=== PATIENT | male | born 1980 | race Hispanic/Latino ===

== ENCOUNTER 2017-02-19 16:10 | Emergency (ER) | payer OTHER ==
[~2017-02-19] VITALS: Ht 170.2 cm; Wt 117.9 kg
[2017-02-19] MEDS ORDERED: FAMOTIDINE 20MG/2ML IV (PEPCID) IV STA (16:41)
[2017-02-19] MEDS ORDERED: NS IV 1000 ML 1,000 ML IV ONE (16:41)
[2017-02-19] MEDS ORDERED: ANTACID SUSP 30 ML UDC (MYLANTA) PO ONE (16:45)
[2017-02-19] MEDS ORDERED: LIDOCAINE 2% VISCOUS 15 ML UDC PO ONE (16:45)
--- NOTE | 2017-02-19 16:56 | ED Abdominal Pain ---
General Chief Complaint: Abdominal/GI Problems Stated Complaint: ABD PAIN Nursing Triage Note: PT TO ED 3 W/ C/O ABD PAIN FROM UMBILICUS TO EPIGASTRIC REGION ONSET X1 YR, WORSE OVER THE PAST FEW WEEKS. REPORTS IT FEELS LIKE HIS ABD SWELLS WHEN HE EATS. NO OTHER C/O VOICED Sepsis Screen: No Definite Risk Source of Information: Patient, Other (insurance claims representative) Exam Limitations: Language Barrier History of Present Illness Time Seen By Provider: 16:36 Initial Comments 36-year-old male patient presents to the emergency Department with reports of pain radiating from the umbilicus to the epigastric region for one year. States it has been worse over the last 4-5 weeks. Does complain of abdominal bloating and reflux symptoms. Symptoms worse with spicy foods and fatty foods. States at times he wakes up with a bad taste in his mouth and nausea. Timing/Duration: Getting Worse, Other (1 yr onset. worse over the last 4-5 wks. ) Severity/Quality: Aching, Burning Location: Periumbilical Radiation: Epigastric Activities at Onset: None Modifying Factors: Worsens With Eating Allergies and Home Medications Allergies Coded Allergies: No Known Drug Allergies (Unverified , 02/19/17) Home Medications Famotidine 20 Mg Tablet, 20 MG PO BID, #60 Ref 0 Prescribed by: FRAN EMERSON on 02/19/171807 Sucralfate 1 Gm Tablet, 1 GM PO ACHS, #56 Ref 0 1 g slurry po qAC and HS x2 wks. Prescribed by: FRAN EMERSON on 02/19/171807 Review of Systems Constitutional: No chills, No fever, No malaise Respiratory: No Symptoms Reported Cardiovascular: No Symptoms Reported Gastrointestinal: See HPI, Abdomen Distended, Abdominal Pain, Denies Blood Streaked Stools, Denies Constipated, Denies Diarrhea, Denies Difficulty Swallowing, Nausea, Poor Appetite, Denies Poor Fluid Intake, Denies Rectal Bleeding, Denies Vomiting Genitourinary: Denies Burning, Denies Frequency, Denies Flank Pain, Denies Hematuria, Denies Pain Musculoskeletal: no symptoms reported Skin: no symptoms reported Psychiatric/Neurological: No Symptoms Reported All Other Systems Reviewed Negative Unless Noted: Yes (Negative excepted noted.) Past Prehtnr-Brivbi-Qhfgqd Hx Patient Social History Alcohol Use: Denies Use Recreational Drug Use: No Smoking Status: Never a Smoker 2nd Hand Smoke Exposure: No Recent Foreign Travel: No Contact w/Someone Who Travel: No Recent Infectious Disease Expo: No Recent Hopitalizations: No Surgeries HX Surgeries: Yes (KIDNEY STONE REMOVAL) Respiratory Hx Respiratory Disorders: No Cardiovascular Hx Cardiac Disorders: No Neurological Hx Neurological Disorders: No Reproductive System Hx Reproductive Disorders: No Genitourinary Hx Genitourinary Disorders: No Gastrointestinal Hx Gastrointestinal Disorders: No Musculoskeletal Hx Musculoskeletal Disorders: No Endocrine Hx Endocrine Disorders: No HEENT HX ENT Disorders: No Cancer Hx Cancer: No Psychosocial Hx Psychiatric Problems: No Blood Transfusions Hx Blood Disorders: No Reviewed Nursing Assessment Reviewed/Agree w Nursing PMH: Yes Family Medical History Significant Family History: No Pertinent Family Hx Physical Exam Vital Signs Capillary Refill : Less Than 3 Seconds General Appearance: WD/WN, no apparent distress HEENT: PERRL/EOMI, pharynx normal Neck: supple, normal inspection Respiratory: lungs clear, normal breath sounds, no respiratory distress Cardiovascular: regular rate, rhythm, no murmur Gastrointestinal: normal bowel sounds, soft, no organomegaly, No distended, guarding (epigastric), No rebound, tenderness (epigastric), hernia (reducible umbilical hernia.) Extremities: no pedal edema, normal capillary refill Back: normal inspection, no CVA tenderness Neurologic/Psychiatric: alert, normal mood/affect, oriented x 3 Skin: normal color, warm/dry Progress/Results/Core Measures Results/Orders Lab Results Laboratory Tests Test 02/19/17 16:51 Range/Units White Blood Count 8.7 4.3-11.0 10^3/uL Red Blood Count 5.15 4.35-5.85 10^6/uL Hemoglobin 14.5 13.3-17.7 G/DL Hematocrit 42 40-54 % Mean Corpuscular Volume 82 80-99 FL Mean Corpuscular Hemoglobin 28 25-34 PG Mean Corpuscular Hemoglobin Concent 34 32-36 G/DL Red Cell Distribution Width 13.1 10.0-14.5 % Platelet Count 244 130-400 10^3/uL Mean Platelet Volume 10.8 H 7.4-10.4 FL Neutrophils (%) (Auto) 61 42-75 % Lymphocytes (%) (Auto) 27 12-44 % Monocytes (%) (Auto) 9 0-12 % Eosinophils (%) (Auto) 3 0-10 % Basophils (%) (Auto) 0 0-10 % Neutrophils # (Auto) 5.3 1.8-7.8 X 10^3 Lymphocytes # (Auto) 2.4 1.0-4.0 X 10^3 Monocytes # (Auto) 0.7 0.0-1.0 X 10^3 Eosinophils # (Auto) 0.3 0.0-0.3 10^3/uL Basophils # (Auto) 0.0 0.0-0.1 10^3/uL Sodium Level 140 135-145 MMOL/L Potassium Level 3.7 3.6-5.0 MMOL/L Chloride Level 106 98-107 MMOL/L Carbon Dioxide Level 24 21-32 MMOL/L Anion Gap 10 5-14 MMOL/L Blood Urea Nitrogen 17 7-18 MG/DL Creatinine 1.00 0.60-1.30 MG/DL Estimat Glomerular Filtration Rate > 60 BUN/Creatinine Ratio 17 Glucose Level 185 H 70-105 MG/DL Calcium Level 8.9 8.5-10.1 MG/DL Total Bilirubin 0.5 0.1-1.0 MG/DL Aspartate Amino Transf (AST/SGOT) 18 5-34 U/L Alanine Aminotransferase (ALT/SGPT) 39 0-55 U/L Alkaline Phosphatase 73 40-136 U/L Total Protein 6.8 6.4-8.2 G/DL Albumin 4.0 3.2-4.5 G/DL Lipase 38 8-78 U/L My Jada Elias - FRAN EMERSON Cbc With Automated Diff (02/19/17 16:41) Comprehensive Metabolic Panel (02/19/17 16:41) Lipase (02/19/17 16:41) Saline Lock/Iv-Start (02/19/17 16:41) Ns Iv 1000 Ml (Sodium Chloride 0.9%) (02/19/17 16:41) Lidocaine 2% Viscous 15 Ml (Xylocaine Vi (02/19/17 16:45) Antacid Suspension (Mylanta Suspension (02/19/17 16:45) Famotidine Injection (Pepcid Injection) (02/19/17 16:41) 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 Reports improvement in symptoms with medications given in the emergency department. Proceed with discharge to home. Patient instructed to follow-up with his primary care physician for recheck and possible need for referral for upper endoscopy. Return precautions were discussed with the patient. Patient voices understanding and agrees with the treatment plan. Impression Impression: Primary Impression: Gastritis, bile acid reflux Additional Impressions: Umbilical hernia Qualified Codes: K42.9 - Umbilical hernia without obstruction or gangrene Umbilical hernia without obstruction or gangrene Disposition: HOME, SELF-CARE Condition: Improved Departure-Patient Inst. Decision time for Depature: 18:05 [facility] Primary Care Physician Patient Instructions: Gastritis (DC), Ulcer and Gastritis Diet Add. Discharge Instructions: All discharge instructions reviewed with patient and/or family. Voiced understanding. Medications as instructed. Tylenol zdmi-hci-cvgvqgx as directed for pain. No spicy foods, fatty foods, carbonated beverages, caffeinated beverages, alcohol, smoking, secondhand smoke, ibuprofen, or Aleve. No aspirin. Do not eat within 2 hours of lying down. Drink plenty of fluids. Follow-up with your primary care physician for recheck if needed. Return to the emergency department for worsened pain, vomiting blood, black stools, rectal bleeding, inability to urinate, or any other concerns. Scripts Sucralfate (Carafate) 1 Gm Tablet 1 GM PO ACHS, #56 TAB 0 Refills 1 g slurry po qAC and HS x2 wks. Prov: FRAN EMERSON 02/19/17 Famotidine (Pepcid) 20 Mg Tablet 20 MG PO BID, #60 TAB 0 Refills Prov: FRAN EMERSON 02/19/17 Work/School Note: Work Release Form Date Seen in the Emergency Department: Feb 19, 2017 Return to Work: Feb 20, 2017 Restrictions: No Restrictions FRAN EMERSON Feb 19, 2017 16:56
[2017-02-19 17:07] VITALS: BP 135/83
[2017-02-19 17:10] LABS: BASOPHILS % (AUTO) 0 % (0-10); EOSINOPHILS # (AUTO) 0.3 10^3/uL (0.0-0.3); EOSINOPHILS % (AUTO) 3 % (0-10); LYMPHOCYTES # (AUTO) 2.4 X 10^3 (1.0-4.0); LYMPHOCYTES % (AUTO) 27 % (12-44); MEAN CORPUSCULAR HEMOGLOBIN 28 PG (25-34); MEAN CORPUSCULAR HGB CONC 34 G/DL (32-36); MEAN CORPUSCULAR VOLUME 82 FL (80-99); MEAN PLATELET VOLUME 10.8 FL (7.4-10.4); MONOCYTES # (AUTO) 0.7 X 10^3 (0.0-1.0); MONOCYTES % (AUTO) 9 % (0-12); NEUTROPHILS # (AUTO) 5.3 X 10^3 (1.8-7.8); NEUTROPHILS % (AUTO) 61 % (42-75); PLATELET COUNT 244 10^3/uL (130-400); RED BLOOD COUNT 5.15 10^6/uL (4.35-5.85); RED CELL DISTRIBUTION WIDTH 13.1 % (10.0-14.5); WHITE BLOOD COUNT 8.7 10^3/uL (4.3-11.0)
[2017-02-19 17:27] LABS: ALANINE AMINOTRANSFERASE 39 U/L (0-55); ANION GAP 10 MMOL/L (5-14); ASPARTATE AMINO TRANSFERASE 18 U/L (5-34); BILIRUBIN,TOTAL 0.5 MG/DL (0.1-1.0); BLOOD UREA NITROGEN 17 MG/DL (7-18); BUN/CREATININE RATIO 17; CALCIUM 8.9 MG/DL (8.5-10.1); CARBON DIOXIDE 24 MMOL/L (21-32); CHLORIDE 106 MMOL/L (98-107); GFR ESTIMATED > 60; GLUCOSE 185 MG/DL (70-105); LIPASE 38 U/L (8-78); POTASSIUM 3.7 MMOL/L (3.6-5.0); SODIUM 140 MMOL/L (135-145); TOTAL PROTEIN 6.8 G/DL (6.4-8.2)
[2017-02-19] MEDS ORDERED: FAMO-119 PO (18:08)
[2017-02-19] MEDS ORDERED: SUCR1TAB36 PO (18:08)
== END 2017-02-19 17:07 | disposition home or self-care (01) ==
LOC: EDUNIT# 16:10 → ER 16:13
DX: K29.70 Gastritis, unspecified, without bleeding (principal); K21.9 Gastro-esophageal reflux disease without esophagitis; K42.9 Umbilical hernia without obstruction or gangrene
CPT/HCPCS: 36415; 80053; 83690; 85025; 96361; 96374

== ENCOUNTER 2017-04-15 15:26 | Emergency (ER) | payer OTHER ==
[~2017-04-15] VITALS: Ht 170.2 cm; Wt 117.9 kg
[~2017-04-15 15:26] MED LIST: FAMO-119 PO; SUCR1TAB36 PO
[2017-04-15] MEDS ORDERED: DICL50TA6 PO (16:00)
--- NOTE | 2017-04-15 16:01 | ED Back Pain ---
General Chief Complaint: Back Problems Stated Complaint: R SIDE PAIN Nursing Triage Note: PT C/O R LOWER BACK PAIN RADIATING DOWN HIS R LEG SINCE . HE DENIES ANY INJURY. Nursing Sepsis Screen: No Definite Risk Source of Information: Patient Exam Limitations: No Limitations History of Present Illness Time Seen by Provider: 15:57 Initial Comments Patient complains of right lower back pain radiating down his right leg for the past 4 days. He denies injury. He denies incontinence or fevers. Is worse with movement such as walking. He denies edema. He says he needs a work note. Allergies and Home Medications Allergies Coded Allergies: No Known Drug Allergies (Unverified , 02/19/17) Home Medications Famotidine 20 Mg Tablet, 20 MG PO BID, #60 Ref 0 Prescribed by: FRAN EMERSON on 02/19/171807 Sucralfate 1 Gm Tablet, 1 GM PO ACHS, #56 Ref 0 1 g slurry po qAC and HS x2 wks. Prescribed by: FRAN EMERSON on 02/19/171807 Constitutional: no symptoms reported Respiratory: no symptoms reported Cardiovascular: no symptoms reported Musculoskeletal: back pain All Other Systems Reviewed Negative Unless Noted: Yes Past Nsftqtg-Lubtto-Nprfki Hx Patient Social History Alcohol Use: Denies Use Recreational Drug Use: No Smoking Status: Never a Smoker 2nd Hand Smoke Exposure: No Recent Foreign Travel: No Contact w/Someone Who Travel: No Recent Infectious Disease Expo: No Recent Hopitalizations: No Seasonal Allergies Seasonal Allergies: No Surgeries HX Surgeries: Yes (KIDNEY STONE REMOVAL) Respiratory Hx Respiratory Disorders: No Cardiovascular Hx Cardiac Disorders: No Neurological Hx Neurological Disorders: No Reproductive System Hx Reproductive Disorders: No Genitourinary Hx Genitourinary Disorders: No Gastrointestinal Hx Gastrointestinal Disorders: No Musculoskeletal Hx Musculoskeletal Disorders: No Endocrine Hx Endocrine Disorders: No HEENT HX ENT Disorders: No Cancer Hx Cancer: No Psychosocial Hx Psychiatric Problems: No Blood Transfusions Hx Blood Disorders: No Reviewed Nursing Assessment Reviewed/Agree w Nursing PMH: Yes Family Medical History Significant Family History: No Pertinent Family Hx Physical Exam Vital Signs Vital Sign - Last 12Hours 04/15/17 15:40 Temp 98.1 Pulse 75 Resp 16 B/P (MAP) 148/85 Pulse Ox 98 O2 Delivery Room Air Capillary Refill : Less Than 3 Seconds General Appearance: No Apparent Distress, WD/WN Neck: Supple Cardiovascular: Regular Rate, Rhythm Respiratory: Lungs Clear Gastrointestinal: Soft Neurologic/Psychiatric: Alert, No Motor/Sensory Deficits, Other (sensory deficit, toe dorsiflexion is strong and equal) Skin: Normal Color, Warm/Dry Progress/Results/Core Measures Results/Orders Vital Signs/I&O Vital Sign - Last 12Hours 04/15/17 15:40 Temp 98.1 Pulse 75 Resp 16 B/P (MAP) 148/85 Pulse Ox 98 O2 Delivery Room Air Blood Pressure Mean: 106 Departure Impression Impression: Primary Impression: Sciatica of right side Disposition: HOME, SELF-CARE Condition: Stable Departure-Patient Inst. Decision time for Depature: 15:59 Referrals: [facility] (PCP/Family) Primary Care Physician Patient Instructions: Sciatica (DC) Add. Discharge Instructions: See your doctor on Sunday if no improvement. All discharge instructions reviewed with patient and/or family. Voiced understanding. Scripts Diclofenac Sodium (Diclofenac Sodium) 50 Mg Tablet. 50 MG PO BID, #10 TAB Prov: GEOVANNI SWENSON MD 04/15/17 GEOVANNI SWENSON MD Apr 15, 2017 16:01
[2017-04-17 08:30] VITALS: BP 148/85
== END 2017-04-15 16:18 | disposition home or self-care (01) ==
LOC: EDUNIT# 15:26 → ER 15:28
DX: M54.31 Sciatica, right side (principal); Z87.442 Personal history of urinary calculi
CPT/HCPCS: 99281

== ENCOUNTER → 2020-08-26 | Outpatient (CLI) | payer SELFPAY ==
[~2020-08-26] MED LIST changes: +DICL50TA6 PO
--- NOTE | 2020-08-26 15:30 | Diagnostic Imaging Report ---
EXAMINATION: CT Abdomen Pelvis without contrast. TECHNIQUE: Multiple contiguous axial images were obtained through the abdomen and pelvis without the use of intravenous contrast. All CT scans use one or more of the following dose optimizing techniques: automated exposure control, MA and/or KvP adjustment based on a patient size and exam type, or iterative reconstruction. HISTORY: LT RENAL STONE COMPARISON: CT abdomen/pelvis 02/03/2011 FINDINGS: Lung bases: The lung bases are clear. Solid organs: Diffuse hypoattenuation of the liver compatible with hepatic steatosis. The gallbladder is normal. There is no biliary ductal dilation. Pancreas is normal. Spleen is normal. Adrenal glands are normal. There is a 1.2 cm calculus within the left renal pelvis. There is minimal dilatation of the left renal collecting system. This has a similar appearance to the prior CT dating back to 2010. Right kidney is unremarkable without hydronephrosis. Bowel: The stomach and small bowel are normal without obstruction. The colon and appendix are normal. Peritoneum: There is no intraperitoneal free fluid or free air. No suspicious lymphadenopathy. Vasculature: Normal without aneurysm. Musculoskeletal: No suspicious osseous lesion or compression fracture. There is a fat-containing periumbilical hernia. Pelvis: The prostate gland is normal. The urinary bladder is normal. IMPRESSION: 1. No acute abnormality in the abdomen or pelvis. 2. Hepatic steatosis. 3. Redemonstrated 1.2 cm calculus within the left renal pelvis with minimal dilatation left renal collecting system. This finding is not significantly changed from prior CT of 2010. Dictated by: Dictated on workstation # [id number]
== END ==
LOC: RAD 15:01
PROVIDERS: ATTEND Urology
DX: N20.0 Calculus of kidney (principal); K76.0 Fatty (change of) liver, not elsewhere classified
CPT/HCPCS: 74176

== ENCOUNTER → 2020-08-26 | Outpatient (CLI) | payer SELFPAY ==
--- NOTE | 2020-08-26 13:52 | Diagnostic Imaging Report ---
Indication: History of bilateral renal calculi. COMPARISON: 02/03/2011 FINDINGS: Single frontal radiograph view of the abdomen was obtained and demonstrates 1.6 x 1.1 cm calculus projecting over the expected location of the left renal pelvis. No other unexpected extraosseous calcifications or radiopaque foreign bodies are seen. Small bowel loops are nondistended. There is no large collection of free intraperitoneal air. Osseous structures show no gross acute abnormalities IMPRESSION:. Probable large calculus within the left renal pelvis. Dictated by: Dictated on workstation # [id number]
== END ==
LOC: RAD 13:04
PROVIDERS: ATTEND Urology
DX: N20.0 Calculus of kidney (principal)
CPT/HCPCS: 74018

== ENCOUNTER 2021-05-09 18:20 | Emergency (ER) | payer SELFPAY ==
[~2021-05-09] VITALS: Ht 167.6 cm; Wt 125.6 kg
[2021-05-09 18:41] LABS: BASOPHILS % (AUTO) 0 % (0-10); EOSINOPHILS # (AUTO) 0.1 10^3/uL (0.0-0.3); EOSINOPHILS % (AUTO) 1 % (0-10); HEMATOCRIT 41 % (40-54); HEMOGLOBIN 13.9 g/dL (13.3-17.7); LYMPHOCYTES # (AUTO) 2.9 X 10^3 (1.0-4.0); LYMPHOCYTES % (AUTO) 36 % (12-44); MEAN CORPUSCULAR HEMOGLOBIN 28 pg (25-34); MEAN CORPUSCULAR HGB CONC 34 g/dL (32-36); MEAN CORPUSCULAR VOLUME 82 fL (80-99); MEAN PLATELET VOLUME 9.6 fL (9.0-12.2); MONOCYTES # (AUTO) 0.5 X 10^3 (0.0-1.0); MONOCYTES % (AUTO) 6 % (0-12); NEUTROPHILS # (AUTO) 4.5 X 10^3 (1.8-7.8); NEUTROPHILS % (AUTO) 56 % (42-75); PLATELET COUNT 253 10^3/uL (130-400); WHITE BLOOD COUNT 8.1 10^3/uL (4.3-11.0)
[2021-05-09] MEDS: NITROGLYCERIN 0.4 MG SL TABS BTL 25'S SL PRN ×3 (18:43→19:08)
[2021-05-09] MEDS ORDERED: ASPIRIN 81 MG CHEW (CHILDREN'S ASA) PO ONE (18:45)
--- NOTE | 2021-05-09 18:45 | ED Chest Pain ---
General Chief Complaint: Chest Pain Stated Complaint: HIGH BP 190/90 - CHEST PRESSURE Nursing Triage Note: PT ARRIVED POV FROM [facility]. PT C/O CHEST PAIN THAT HAS PERSISTED FOR 2-3 WEEKS BUT PAIN WORSENED TODAY. PT DENIES RADIATION. PT C/O L SIDED SWELLING AND L HEAD PAIN. Nursing Sepsis Screen: No Definite Risk Source: patient Exam Limitations: no limitations History of Present Illness Date Seen by Provider: May 09, 2021 Time Seen by Provider: 18:24 Initial Comments Here with left-sided chest pain has been going on for the last couple of weeks but now radiating to his head and arm as well as down his body. He was noted to have high blood pressure today which is not normal for him. Does have history of diabetes and cholesterol problems. No family history of heart disease but does have diabetes in the family. Denies nausea, vomiting, weakness or sweating. Does feel swollen on the left side he states. 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 Prescribed by: FRAN EMERSON on 02/19/171807 Patient Home Medication List Home Medication List Reviewed: Yes Review of Systems Review of Systems Constitutional: see HPI EENTM: No Symptoms Reported Respiratory: Denies Cough, Denies Shortness of Air Cardiovascular: Denies Lightheadedness, Denies Palpitations Gastrointestinal: Denies Nausea, Denies Vomiting Genitourinary: No Symptoms Reported Musculoskeletal: no symptoms reported Psychiatric/Neurological: Headache (Left-sided pressure) All Other Systems Reviewed Negative Unless Noted: Yes Past Oqbvhpi-Qnevow-Cfmbmx Hx Past Med/Social Hx: Reviewed Nursing Past Med/Soc Hx Patient Social History Alcohol Use: Denies Use 2nd Hand Smoke Exposure: No Recent Infectious Disease Expo: No Recent Hopitalizations: No Seasonal Allergies Seasonal Allergies: No Past Medical History Surgeries: Yes (KIDNEY STONE REMOVAL) Respiratory: No Cardiac: Yes High Cholesterol, Hypertension Neurological: No Reproductive Disorders: No Gastrointestinal: No Musculoskeletal: No Endocrine: Yes Diabetes, Non-Insulin dep HEENT: No Cancer: No Psychosocial: No Blood Disorders: No Family Medical History Reviewed Nursing Family Hx No Pertinent Family Hx Physical Exam Vital Signs Vital Signs - First Documented Capillary Refill : Less Than 3 Seconds Height, Weight, BMI Height: 5'7.00" Weight: 260lbs. oz. 117.555349xu; 44.00 BMI Method:Stated General Appearance: No Apparent Distress, WD/WN, Obese HEENT: PERRL/EOMI, Pharynx Normal Neck: Non Tender, Supple Respiratory: Lungs Clear, No Respiratory Distress Cardiovascular: Regular Rate, Rhythm, No Murmur Gastrointestinal: Non Tender, Soft Extremity: Normal Range of Motion, Non Tender, No Calf Tenderness, No Pedal Edema Neurologic/Psychiatric: Alert, Oriented x3 Skin: Normal Color, Warm/Dry Progress/Results/Core Measures Results/Orders Lab Results Laboratory Tests Test 05/09/21 18:30 05/09/21 20:28 Range/Units White Blood Count 8.1 4.3-11.0 10^3/uL Red Blood Count 5.02 4.30-5.52 10^6/uL Hemoglobin 13.9 13.3-17.7 g/dL Hematocrit 41 40-54 % Mean Corpuscular Volume 82 80-99 fL Mean Corpuscular Hemoglobin 28 25-34 pg Mean Corpuscular Hemoglobin Concent 34 32-36 g/dL Red Cell Distribution Width 13.1 10.0-14.5 % Platelet Count 253 130-400 10^3/uL Mean Platelet Volume 9.6 9.0-12.2 fL Immature Granulocyte % (Auto) 1 % Neutrophils (%) (Auto) 56 42-75 % Lymphocytes (%) (Auto) 36 12-44 % Monocytes (%) (Auto) 6 0-12 % Eosinophils (%) (Auto) 1 0-10 % Basophils (%) (Auto) 0 0-10 % Neutrophils # (Auto) 4.5 1.8-7.8 X 10^3 Lymphocytes # (Auto) 2.9 1.0-4.0 X 10^3 Monocytes # (Auto) 0.5 0.0-1.0 X 10^3 Eosinophils # (Auto) 0.1 0.0-0.3 10^3/uL Basophils # (Auto) 0.0 0.0-0.1 10^3/uL Immature Granulocyte # (Auto) 0.0 0.0-0.1 10^3/uL Prothrombin Time 12.6 12.2-14.7 SEC INR Comment 0.9 0.8-1.4 Activated Partial Thromboplast Time 28 24-35 SEC D-Dimer < 0.27 0.00-0.49 UG/ML Sodium Level 142 135-145 MMOL/L Potassium Level 3.3 L 3.6-5.0 MMOL/L Chloride Level 103 98-107 MMOL/L Carbon Dioxide Level 26 21-32 MMOL/L Anion Gap 13 5-14 MMOL/L Blood Urea Nitrogen 13 7-18 MG/DL Creatinine 0.77 0.60-1.30 MG/DL Estimat Glomerular Filtration Rate > 60 BUN/Creatinine Ratio 17 Glucose Level 122 H 70-105 MG/DL Calcium Level 9.5 8.5-10.1 MG/DL Corrected Calcium 9.3 8.5-10.1 MG/DL Magnesium Level 1.8 1.6-2.4 MG/DL Total Bilirubin 0.5 0.1-1.0 MG/DL Aspartate Amino Transf (AST/SGOT) 17 5-34 U/L Alanine Aminotransferase (ALT/SGPT) 30 0-55 U/L Alkaline Phosphatase 74 40-136 U/L Myoglobin 42.3 10.0-92.0 NG/ML Troponin I < 0.028 < 0.028 <0.028 NG/ML Total Protein 7.6 6.4-8.2 GM/DL Albumin 4.3 3.2-4.5 GM/DL My Orders Orders - MICHAEL SUAZO MD Cbc With Automated Diff (05/09/21 18:32) Magnesium (05/09/21 18:32) Chest 1 View, Ap/Pa Only (05/09/21 18:32) Ekg Tracing (05/09/21 18:32) Comprehensive Metabolic Panel (05/09/21 18:32) Myoglobin Serum (05/09/21 18:32) Protime With Inr (05/09/21 18:32) Partial Thromboplastin Time (05/09/21 18:32) O2 (05/09/21 18:32) Monitor-Rhythm Ecg Trace Only (05/09/21 18:32) Lipid Panel (05/10/21 06:00) Ed Iv/Invasive Line Start (05/09/21 18:32) Troponin I (05/09/21 18:32) Aspirin Chewable Tablet (Baby Aspirin Ch (05/09/21 18:45) Nitroglycerin 0.4 Mg Btl 25's (Nitrostat (05/09/21 18:45) Fibrin Degradation Products (05/09/21 19:27) Metoprolol Tartrate (Ir) Tab (Lopressor (05/09/21 19:30) Troponin I (05/09/21 20:31) Medications Given in ED Current Medications Medications Dose Ordered Sig/Azalia Route Start Time Stop Time Status Last Admin Dose Admin Aspirin 324 mg ONCE ONCE PO 05/09/21 18:45 05/09/21 18:46 DC 05/09/21 18:40 324 MG Metoprolol Tartrate 50 mg ONCE ONCE PO 05/09/21 19:30 05/09/21 19:31 DC 05/09/21 19:37 50 MG Nitroglycerin 0.4 mg UD PRN SL 05/09/21 18:45 05/09/21 19:08 DC 05/09/21 19:08 0.4 MG Vital Signs/I&O 05/09/21 05/09/21 18:25 18:25 Temp 36.1 Pulse 86 Resp 20 B/P (MAP) 187/112 (137) Pulse Ox 98 O2 Delivery Room Air Room Air Blood Pressure Mean: 137 Progress Progress Note : Progress Note Seen and evaluated. Chest pain protocol initiated. Aspirin and nitroglycerin ordered. Monitor patient. 2029: Repeat troponin ordered. Patient is pain- free. Metoprolol 50 mg p.o. ordered. Monitor patient. 2129: Repeat troponin negative. D-dimer negative. Blood pressure now low 100s and patient is without pain or concerns and states he feels much better. I believe this was secondary to hypertension. We will continue metoprolol outpatient. [facility] He will need further evaluation for cardiac work- up and can follow-up through clinic on that. I will also give him cardiology on-call as well. Discharged home with return precautions. Patient verbalized understanding of instructions and agreement with plan. Initial ECG Impression Date: May 09, 2021 Initial ECG Impression Time: 18:26 Initial ECG Rate: 80 Initial ECG Rhythm: Normal Sinus Initial ECG Impression: Normal Initial ECG Comparisson: No Previous ECG Available Comment Sinus rhythm with normal axis. No evidence of ST elevation GA. No previous available for comparison. Interpreted by me. Diagnostic Imaging Diagonstic Imaging: Xray Plain Films/CT/US/NM/MRI: chest Comments [facility] [place] NAME: EFREN PITT [facility] REC#: [id number] PT STATUS: REG ER : 1980 PHYSICIAN: MICHAEL SUAZO MD ADMIT DATE: 05/09/21/ER Draft Date of Exam:05/09/21 CHEST 1 VIEW, AP/PA ONLY INDICATION: Chest pain for 2 to 3 weeks. EXAMINATION: Chest 05/09/2021 Single view chest. FINDINGS: The cardiomediastinal silhouette is unremarkable. The pulmonary vasculature is within normal limits. The lungs and pleural spaces are clear. IMPRESSION: No evidence of an acute cardiopulmonary process. Dictated on workstation # [id number] Dict: 05/09/211929 Trans: 05/09/211933 [id number] Interpreted by: YADI SHAIKH MD Electronically signed by: Departure Impression Primary Impression: Uncontrolled hypertension Additional Impression: Chest pain Qualified Codes: R07.9 - Chest pain, unspecified Disposition: HOME, SELF-CARE Condition: Improved Departure-Patient Inst. Decision time for Depature: 21:31 Referrals: [facility] (PCP/Family) Primary Care Physician ADAN BLACK MD FACP FAC YAHAIRA REYES JR, MD Patient Instructions: Chest Pain (DC), High Blood Pressure (DC) Add. Discharge Instructions: All discharge instructions reviewed with patient and/or family. Voiced under standing. Take medications as directed. [facility]. Follow-up with Dr. Black or Dr. Bradford for recheck and further evaluation for your heart. Call in the morning for appointment. Return for chest pain, breathing problems, weakness, vomiting, sweating or other concerns as needed. Continue other home medications as previously prescribed. Scripts Metoprolol Tartrate (Metoprolol Tartrate) 25 Mg Tablet 25 MG PO BID, #60 TAB 0 Refills Prov: MICHAEL SUAZO MD 05/09/21 Copy Copies To 1: ADAN BLACK MD FACP [facility] CCDS Copies To 2: LAI EDGE TIMOTHY D MD May 09, 2021 18:45
[2021-05-09 18:52] LABS: CALCIUM 9.5 MG/DL (8.5-10.1)
[2021-05-09 18:53] LABS: GLUCOSE 122 MG/DL (70-105); TOTAL PROTEIN 7.6 GM/DL (6.4-8.2)
[2021-05-09 18:54] LABS: CARBON DIOXIDE 26 MMOL/L (21-32)
[2021-05-09 18:55] LABS: BILIRUBIN,TOTAL 0.5 MG/DL (0.1-1.0)
[2021-05-09 18:56] LABS: ALBUMIN 4.3 GM/DL (3.2-4.5); ALKALINE PHOSPHATASE 74 U/L (40-136); CHLORIDE 103 MMOL/L (98-107); CREATININE SERUM 0.77 MG/DL (0.60-1.30); GFR ESTIMATED > 60; INR 0.9 (0.8-1.4); POTASSIUM 3.3 MMOL/L (3.6-5.0); PROTHROMBIN TIME PATIENT 12.6 SEC (12.2-14.7); SODIUM 142 MMOL/L (135-145)
[2021-05-09 18:57] LABS: BUN/CREATININE RATIO 17
[2021-05-09 18:59] LABS: ALANINE AMINOTRANSFERASE 30 U/L (0-55); MAGNESIUM 1.8 MG/DL (1.6-2.4)
[2021-05-09] MEDS ORDERED: meTOprolol TARTRATE 25 MG (LOPRESSOR) TABLET PO ONE (19:30)
--- NOTE | 2021-05-09 19:34 | Diagnostic Imaging Report ---
INDICATION: Chest pain for 2 to 3 weeks. EXAMINATION: Chest 05/09/2021 Single view chest. FINDINGS: The cardiomediastinal silhouette is unremarkable. The pulmonary vasculature is within normal limits. The lungs and pleural spaces are clear. IMPRESSION: No evidence of an acute cardiopulmonary process. Dictated by: Dictated on workstation # [id number]
[2021-05-09] MEDS ORDERED: METO-333 PO (21:37)
[2021-05-09 21:47] VITALS: BP 146/105
== END 2021-05-09 21:49 | disposition home or self-care (01) ==
LOC: EDUNIT# 18:20 → ER 18:22
DX: I10 Essential (primary) hypertension (principal); R07.9 Chest pain, unspecified; E66.9 Obesity, unspecified; E11.9 Type 2 diabetes mellitus without complications; Z68.41 Body mass index [BMI] 40.0-44.9, adult
CPT/HCPCS: 36415; 71045; 80053; 83735; 83874; 84484; 85025; 85379; 85610; 85730; 93005; 93041

== ENCOUNTER → 2022-07-03 | Outpatient (CLI) | payer SELFPAY ==
[~2022-07-03] MED LIST changes: +METO-333 PO
--- NOTE | 2022-07-03 16:05 | Diagnostic Imaging Report ---
INDICATION: History of calculi. COMPARISON: CT dated 08/26/2020 FINDINGS: 2 frontal radiographic views of the abdomen were obtained. A 1.7 cm calculus is identified projecting over the left renal shadow. Inferior to this, there is a smaller 1.1 cm extraosseous calcification. No unexpected radiopaque foreign bodies are seen. Small bowel loops are nondistended. There is no large collection of free intraperitoneal air. The osseous structures show no gross acute abnormalities. IMPRESSION: 1. Probable multiple large left renal calculi. 2. Nonobstructed small bowel gas pattern. Dictated by: Dictated on workstation # [id number]
== END ==
LOC: RAD 13:17
PROVIDERS: ATTEND Urology
DX: N20.1 Calculus of ureter (principal)
CPT/HCPCS: 74018